=== PATIENT | male | born 1930 | race Caucasian/White ===

== ENCOUNTER → 2019-01-02 | Day surgery (SDC) | payer MEDICARE ==
[2018-12-28 12:22] LABS: BASOPHILS % 0.4 % (0.0-1.0); EOSINOPHILS # (AUTO) 0.3 (0.0-0.4); EOSINOPHILS % 3.2 % (0.0-6.0); HEMATOCRIT 39.1 % (38.2-49.6); HEMOGLOBIN 12.9 g/dL (14.0-18.0); LYMPHOCYTES # (AUTO) 3.1 (1.0-3.2); LYMPHOCYTES % 39.7 % (18.0-39.1); MEAN CORPUSCULAR HEMOGLOBIN 29.6 pg (28-32); MEAN CORPUSCULAR VOLUME 89.7 fL (81-99); MONOCYTES # (AUTO) 0.6 (0.2-0.8); MONOCYTES % 8.1 % (4.4-11.3); NEUTROPHILS # (AUTO) 3.8 (2.1-6.9); NEUTROPHILS % 48.3 % (38.7-80.0); PLATELET COUNT 192 x10e3/uL (140-360); RED BLOOD COUNT 4.36 x10e6/uL (4.3-5.7); RED CELL DISTRIBUTION WIDTH 14.5 % (11.7-14.4)
[~2019-01-02] MED LIST: AMIODARONE HCL200 MG PO; ASPIRIN81 MG PO; ATROVENT15 ML; BENADRYL25 M1 PO; BUSPIRONE HCL5 MG PO; CENTRUM SILVER1 EAC4 PO; CEPHALEXIN500 MG PO; DEEP SEA45 ML; DIGOXIN125 MCG PO; FAMOTIDINE20 MG PO; FUROSEMIDE20 MG PO; FUROSEMIDE40 MG PO; LIDOCAINE HCL 2% LOCAL INJ 5 ML SDV VIAL INJ ONE; LISINOPRIL-HCT1 EAC2 PO; LOPRESSOR25 MG PO; LOVASTATIN40 MG PO; MELATONIN3 MG PO; METOPROLOL SUCC25 MG PO; PEPCID20 MG; POTASSIUM CHLO10 ME1 PO; POTASSIUM GLUCO99 MG PO; PRAVASTATIN SOD40 MG PO; PROAIR HFA INH8.5 GM INH; PROPOFOL IV EMULSION 10 MG/ML 50 ML VIAL ONE; SYNTHROID100 MCG PO; TAMSULOSIN HCL0.4 MG PO; UNISOM50 MG PO; VITAMIN D31000 UNI2 PO; WARFARIN SODIUM2 MG PO; XARELTO10 MG PO; Z.0.LOPRESSOR25 MG; Z.0.LOVASTATIN40 MG PO; Z.1.LEVOTHYROXINE100 PO; ZESTORETIC 10-1 EAC1 PO
--- OUTSIDE RECORDS SUMMARY | 2019-01-02 08:51 | XMS REPORT ---
Author Author [facility] Address Unknown Phone Unavailable Care Team Providers Care Affirmative Action Officer Name Role Phone Mauri HOPKINS Unavailable Unavailable Problems This patient has no known problems. Allergies, Adverse Reactions, Alerts This patient has no known allergies or adverse reactions. Medications This patient has no known medications. Results Test Description Test Time Test Comments Text Results Atomic Results Result Comments CHEST SINGLE (PORTABLE) [place] [address] Patient Name: KENYATTA PATRICIA MR #: [id number] : 1930 Age/Sex: 86/M Req #: [id number] Adm Physician: Ordered by: MANJU HOPKINS MD Report #: [id number] Location: ER Room/Bed: Procedure: [id number] DX/CHEST SINGLE (PORTABLE) Exam Date: 11/12/16 Exam Time: 0115 REPORT STATUS: Signed EXAMINATION: CHEST SINGLE (PORTABLE) INDICATION: Chest pain, shortness of breath COMPARISON: 09/13/2016 FINDINGS: TUBES and LINES: AICD is intact. LUNGS: Lungs are not well inflated. There are bibasilar atelectasis. There is perihilar interstitial opacities, consistent with interstitial edema. PLEURA: Small bilateral pleural effusions. HEART AND MEDIASTINUM: Cardiac size is moderately enlarged. There are atherosclerotic calcifications within the aorta. BONES AND SOFT TISSUES: No acute osseous lesion. Soft tissues are unremarkable. UPPER ABDOMEN: No free air under the diaphragm. IMPRESSION: Findings are consistent with developing cardiogenic pulmonary edema and small bilateral pleural effusions. Signed by: Dr. Tony Mcguire M.D. on 11/12/2016 1:35 AM Dictated By: TONY ROQUE MD 4 Transcribed By: WES on 11/12/16134 COPY TO: MANJU HOPKINS MD
[2019-01-02 09:23] LABS: INR 1.17; PROTHROMBIN TIME 15.5 seconds (11.9-14.5)
[2019-01-02 09:24] LABS: PARTIAL THROMBOPLASTIN TIME 38.4 seconds (23.8-35.5)
[2019-01-02 13:00] VITALS: BP 105/55
--- NOTE | 2019-01-02 16:13 | Operative Report ---
DATE OF PROCEDURE: 01/02/2019 SURGEON: Jani Ervin MD PROCEDURES: EGD with esophageal dilatation and a pyloric channel dilatation per TTS balloon dilators and biopsies. INDICATIONS FOR EGD: Dysphagia to solids, bloating, excessive belching. MEDICATIONS: The patient was done under MAC, please see anesthesiologist's note. PROCEDURE IN DETAIL: With the patient in left lateral decubitus position, a flexible fiberoptic Olympus gastroscope was introduced into the esophagus under direct visualization without any difficulty. There was a mild stricture noted at the GE junction that was dilated to size 50-[place]. The scope was then advanced with ease into the stomach traversing a small sliding hiatal hernia. Mucosa overlying the antrum and the body revealed some patchy erythema and low-grade to moderate edema, and biopsies were obtained and sent to stain for H. pylori. Two submucosal nodules were noted in the body of the stomach and biopsies were obtained. Pylorus was strictured and could not be traversed with the scope. It was then dilated to size 14 mm per TTS balloon dilators. It was then traversed with ease with the scope, which was advanced all the way to the second portion of the duodenum. The scope was then withdrawn slowly, mucosa overlying the proximal second portion and the duodenal bulb appeared to be within normal limits. The scope was then withdrawn back into the stomach and retroflexed, mucosa overlying the fundus and the cardia appeared to be within normal limits. The scope was then straightened out, it was subsequently withdrawn, and the patient tolerated the procedure well. IMPRESSION: 1. Distal esophagitis. 2. Esophagus dilated to size 50-[place] White. 3. Small hiatal hernia. 4. Gastritis, biopsied, biopsies sent to stain for Helicobacter pylori. 5. Submucosal nodules, body, biopsied. 6. 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 PLAN: Follow up histology. Initiate Protonix 40 mg 1 p.o. q.a.m. before meals. Jani Ervin MD [facility] [place] /[id number] cc: Nader Ervin MD
== END | disposition home or self-care (01) ==
LOC: OR 08:38
PROVIDERS: ATTEND Internal Medicine Gastroenterology
DX: R13.10 Dysphagia, unspecified (principal); Z01.810 Encounter for preprocedural cardiovascular examination; Z01.812 Encounter for preprocedural laboratory examination; E03.9 Hypothyroidism, unspecified; K21.9 Gastro-esophageal reflux disease without esophagitis; N40.0 Benign prostatic hyperplasia without lower urinary tract symptoms; I10 Essential (primary) hypertension; F41.9 Anxiety disorder, unspecified; R06.02 Shortness of breath; Z95.0 Presence of cardiac pacemaker; R10.10 Upper abdominal pain, unspecified; K62.89 Other specified diseases of anus and rectum; K20.9 Esophagitis, unspecified; K44.9 Diaphragmatic hernia without obstruction or gangrene; K29.70 Gastritis, unspecified, without bleeding; K22.2 Esophageal obstruction; K31.1 Adult hypertrophic pyloric stenosis
CPT/HCPCS: 36415 ×2; 43239; 43245; 43450; 85025; 85610; 85730; 88305; 88312; 93005; J2001; J2704